=== PATIENT | female | born 1985 | race Two or more races ===

== ENCOUNTER 2024-06-28 07:59 | Emergency (ER) | payer OTHER ==
[~2024-06-28] VITALS: Ht 149.9 cm; Wt 145.0 kg
[2024-06-28 08:35] VITALS: BP 138/87; PULSE 81; RESP 16; TEMP 98.5; O2SAT 98
--- NOTE | 2024-06-28 08:46 | ED.PDOC ---
Musculoskeletal HPI Comments Portions of this chart may have been created with an modal fluency direct voice recognition software. Occasional wrong-word or "sound-alike" substitutions may have occurred due to the inherent limitations of voice recognition software. Please read the chart carefully and recognize, using context, where these substitutions have occurred. This is a pleasant 38-year-old female that presents for a possible fracture to the right lateral malleolus. Onset occurred after patient twisted her ankle stepping down a curb Onset was sudden Unable to ambulate without assistive devices at this time Denies previous surgeries to the ankle Denies redness or swelling around the ankle Denies fever chills night sweats nausea vomiting Chief Complaint: Lower Extremity Time Seen by MD: 08:33 Primary Care Provider: Chandler Baker Reviewed Notes: Nurses Notes, Medications, Allergies Allergies: Coded Allergies: NO KNOWN ALLERGIES (Unverified , 06/28/24) Information Source: Patient Mode of Arrival: Wheelchair Family History Family History: Reviewed,noncontributory to illness Social History Smoker: Non-Smoker Alcohol: Denies ETOH Use Drugs: Denies Drug Use All Other Systems: Reviewed and Negative (Per HPI) Physical Exam General Appearance: No Apparent Distress, Normal HEENT: Normal ENT Inspection, Pharynx Normal, TMs Normal Neck: Full Range of Motion, Non-Tender, Normal, Normal Inspection Respiratory: Chest Non-Tender, Lungs Clear, No Accessory Muscle Use, No Respiratory Distress, Normal Breath Sounds Cardiovascular: No Edema, No JVD, No Murmur, No Gallop, Normal Peripheral Pulses, Regular Rate/Rhythm Breast Exam: Deferred Gastrointestinal: No Organomegaly, Non Tender, No Pulsatile Mass, Normal Bowel Sounds, Soft Genitalia: Deferred Pelvic: Deferred Rectal: Deferred Extremities: No calf tenderness, Normal capillary refill, Normal inspection, Normal range of motion, Non-tender, No pedal edema Musculoskeletal : Apperance: Normal Neurologic: Alert, sales service professional II-XII nml as Tested, No Motor Deficits, Normal Affect, Normal Mood, No Sensory Deficits Cerebellar Function: Normal Reflexes: Normal Skin: Dry, Normal Color, Warm Lymphatic: No Adenopathy Was a procedure done? Was a procedure done?: No Images 1 - Obvious deformity. No open wounds. No ecchymosis. Localized tenderness to the lateral malleolus with palpation. Distal neuro sensation intact. Dorsalis pedis 2+ Differential Diagnosis EXT Differential Diagnosis: Fracture, Sprain, Dislocation X-Ray, Labs, Meds, VS Vital Signs Date Time Temp Pulse Resp B/P (MAP) Pulse Ox O2 Delivery O2 Flow Rate FiO2 06/28/24 08:35 98.5 81 16 138/87 (104) 98 98.5 06/28/24 08:35 81 16 98 Room Air 06/28/24 08:10 98.5 81 16 138/87 (104) 98 PATIENT: SHRUTI FORD ACCT: [id number] UNIT: [id number] : 1985 LOC: ER ROOM / BED: / AGE / SEX: 38 / F ADM STATUS: REG ER SERVICE 4 ORDERING PHYSICIAN: NIDIA GONZÁLES NP PROCEDURE(s): RANKL - R ANKLE 3 VIEW REASON: possible fracture ORDER NUMBER(s): [id number], ACCESSION NUMBER(s): [id number] CLINICAL INDICATION: possible fracture TECHNIQUE: 3 radiographic views of the right ankle were obtained. Comparison: None FINDINGS/IMPRESSION: Avulsive fracture of the lateral malleolus is visualized. Soft tissue swelling about the lateral ankle. The visualized joint space is well maintained. The alignment is anatomical. There is no radiopaque foreign body. ATED BY: NICK JUDGE MD DICTATED DATE/TIME: 06/28/24925 SIGNED BY: NICK JUDGE MD SIGNED DATE/TIME: 06/28/24925 CC: X-Ray, Labs, Meds, VS Comment Avulsive fracture of the lateral malleolus is visualized. Soft tissue swelling about the lateral ankle. Ordered posterior short. Distal neuro sensation intact on re-evaluation. Ordered crutches Take NSAIDs for pain Test results and diagnostic imaging interpreted. All diagnostic findings, discharge care, education and instructions provided Follow-up with PCP in 2 to 3 days. Will need ortho consult. Patient verbalized understanding and agreed to treatment plan Vital signs stable, afebrile, no acute distress noted Patient ambulatory with strong steady gait Advised to return precautions for any new or worsening symptoms, return to ER immediately for re-evaluation Patient is aware that the purpose of this visit was for an acute medical emergency requiring emergent stabilization. Chronic conditions, including malignancies have not been ruled out. Patient is instructed to follow up with PCP as directed and discharge instructions for continued care and workup. If unable to arrange follow-up, patient is to return to the emergency department for reassessment. Patient (parent or legal guardian if applicable) was given verbal and written discharge instructions and acknowledges understanding. Time of 1ST Reevaluation: 09:50 Reevaluation 1ST: Improved Patient Education/Counseling: Diagnosis, Treatment Family Education/Counseling: Diagnosis, Treatment Departure 1 Departure Time of Disposition: 12:40 Impression: Primary Impression: Fx lateral malleolus-closed Qualified Codes: S82.61XA - Displaced fracture of lateral malleolus of right fibula, initial encounter for closed fracture Additional Impression: Ankle fracture Qualified Codes: S82.891A - Other fracture of right lower leg, initial encounter for closed fracture Disposition: 01 HOME / SELF CARE / HOMELESS Condition: Stable Discharged With: Self Critical Care Note Critical Care Time?: No Stability Stability form required: No Heart Score Heart Score: Heart Score Response (Comments) Value History N/A 0 EKG N/A 0 Age N/A 0 Risk Factors N/A 0 Troponin N/A 0 Total 0 NIDIA GONZÁLES [employer] HEL[employer] Jun 28, 2024 08:46
[2024-06-28] MEDS: HYDROcodone-ACET 5/325MG TAB PO ONE (09:18)
--- NOTE | 2024-06-28 09:27 | DVH ---
CLINICAL INDICATION: possible fracture TECHNIQUE: 3 radiographic views of the right ankle were obtained. Comparison: None FINDINGS/IMPRESSION: Avulsive fracture of the lateral malleolus is visualized. Soft tissue swelling about the lateral ank le. The visualized joint space is well maintained. The alignment is anatomical. There is no radiopaque foreign body.
== END 2024-06-28 10:07 | disposition home or self-care (01) ==
LOC: ER 07:59
DX: S82.891A Other fracture of right lower leg, initial encounter for closed fracture (principal); X50.1XXA Overexertion from prolonged static or awkward postures, initial encounter; Y93.89 Activity, other specified; Y92.89 Other specified places as the place of occurrence of the external cause; Y99.8 Other external cause status
CPT/HCPCS: 29515; 73610